=== PATIENT | male | born 1940 | race Caucasian/White ===

== ENCOUNTER 2017-12-26 12:15 | Day surgery (SDC) | payer BC ==
[~2017-12-26] VITALS: Ht 180.3 cm; Wt 80.4 kg
[2017-12-26] MEDS ORDERED: QUIN5 PO (12:44)
[2017-12-26] MEDS ORDERED: HYDCHL12.5 (12:44)
== END 2017-12-26 15:08 | disposition home or self-care (01) ==
LOC: ORSCSDS 12:15
PROVIDERS: Internal Medicine Gastroenterology
PROC: 0DBC8ZX Excision of Ileocecal Valve, Via Natural or Artificial Opening Endoscopic, Diagnostic (ICD-10-PCS; principal; 2017-12-26 13:30)
PROC: 0DBM8ZX Excision of Descending Colon, Via Natural or Artificial Opening Endoscopic, Diagnostic (ICD-10-PCS; principal; 2017-12-26 13:30)
DX: Z12.11 Encounter for screening for malignant neoplasm of colon (principal); K52.89 Other specified noninfective gastroenteritis and colitis; Z86.010 Personal history of colon polyps; K57.30 Diverticulosis of large intestine without perforation or abscess without bleeding; Z87.891 Personal history of nicotine dependence; Z79.899 Other long term (current) drug therapy
CPT/HCPCS: 88305; 93005; 93010; J1980

== ENCOUNTER 2018-07-01 09:27 | Inpatient (IN) | payer MEDICARE, BC ==
[~2018-07-01] VITALS: Ht 180.3 cm; Wt 85.6 kg
[~2018-07-01 09:27] MED LIST: HYDCHL12.5; QUIN5 PO
[2018-07-01 10:44] LABS: BASOPHILS ABSOLUTE AUTO 0.01 K/mm3 (0.00-0.23); BASOPHILS PERCENT AUTO 0 % (0-2); EOSINOPHILS PERCENT AUTO 0 % (0-6); Hematocrit 39.4 % (37.0-53.0); Hemoglobin 13.2 g/dL (13.5-17.5); IMMATURE GRAN ABSOLUTE AUTO 0.04 K/mm3 (0.00-0.10); IMMATURE GRAN PERCENT AUTO 0 % (0-1); LYMPHOCYTES ABSOLUTE AUTO 0.49 K/mm3 (0.84-5.20); LYMPHOCYTES PERCENT AUTO 5 % (21-46); MONOCYTES ABSOLUTE AUTO 0.35 K/mm3 (0.16-1.47); MONOCYTES PERCENT AUTO 3 % (4-13); Mean Corpuscular HGB 29.9 pg (26.0-34.0); Mean Corpuscular HGB Conc 33.5 g/dL (31.5-36.5); Mean Corpuscular Volume 89 fL (80-100); Mean Platelet Volume 11.3 fL (9.1-12.4); NEUTROPHILS ABSOLUTE AUTO 9.48 K/mm3 (1.96-9.15); NEUTROPHILS PERCENT AUTO 91 % (41-73); Platelet Count 138 K/mm3 (150-400); RDW Coefficient Variation 13.2 % (11.7-14.2); RDW Standard Deviation 43.5 fL (35.1-46.3); Red Blood Cell Count 4.42 M/mm3 (4.30-5.90); White Blood Cell Count 10.37 K/mm3 (4.00-11.30)
[2018-07-01 10:58] LABS: Albumin, Blood 3.1 g/dL (3.4-5.0); Albumin/Globulin Ratio 0.8 (0.8-1.8); Bilirubin, Total 0.6 mg/dL (0.1-1.0); Bun/Creatinine Ratio 24.3 (12.0-20.0); Calcium, Blood 8.2 mg/dL (8.5-10.1); Creatinine, Blood 1.36 mg/dL (0.60-1.20); Globulin, Blood 3.7 g/dL (2.2-4.0); Potassium, Blood 3.1 mmol/L (3.5-5.5); Total Protein, Blood 6.8 g/dL (6.4-8.2)
[2018-07-01] MEDS ORDERED: Dyazide 37.5-21 EACH PO (14:46)
[2018-07-01 15:21] LABS: Influenza A Negative (NEGATIVE); Influenza B Negative (NEGATIVE)
[2018-07-02 01:04] LABS: Source, Urine Voided
[2018-07-02 01:06] LABS: Appearance, Urine Clear (Clear); Bilirubin, Urine Neg (Neg); Blood, Urine 4+ (Neg); Color, Urine Amber (P-Yellow); Glucose Qualitative, Urine Neg (Neg); Ketones, Urine 1+ (Neg); Leukocyte Esterase, Urine 1+ (Neg); Nitrite, Urine Neg (Neg); Protein, Urine 3+ (Neg); Urobilinogen, Urine NORM (Normal)
[2018-07-02 01:11] LABS: Red Blood Cells, Urine 0-2 /hpf (0-2)
[2018-07-02 01:12] LABS: Bacteria Many /hpf; Squamous Epithelial Cells Few /hpf (Few)
[2018-07-02 05:17] LABS: BASOPHILS ABSOLUTE AUTO 0.01 K/mm3 (0.00-0.23); BASOPHILS PERCENT AUTO 0 % (0-2); EOSINOPHILS PERCENT AUTO 0 % (0-6); Hematocrit 40.7 % (37.0-53.0); Hemoglobin 13.5 g/dL (13.5-17.5); IMMATURE GRAN ABSOLUTE AUTO 0.06 K/mm3 (0.00-0.10); IMMATURE GRAN PERCENT AUTO 1 % (0-1); LYMPHOCYTES ABSOLUTE AUTO 0.43 K/mm3 (0.84-5.20); LYMPHOCYTES PERCENT AUTO 4 % (21-46); MONOCYTES ABSOLUTE AUTO 0.27 K/mm3 (0.16-1.47); MONOCYTES PERCENT AUTO 3 % (4-13); Mean Corpuscular HGB 30.2 pg (26.0-34.0); Mean Corpuscular HGB Conc 33.2 g/dL (31.5-36.5); Mean Corpuscular Volume 91 fL (80-100); Mean Platelet Volume 11.1 fL (9.1-12.4); NEUTROPHILS ABSOLUTE AUTO 9.88 K/mm3 (1.96-9.15); NEUTROPHILS PERCENT AUTO 93 % (41-73); Platelet Count 131 K/mm3 (150-400); RDW Coefficient Variation 13.7 % (11.7-14.2); RDW Standard Deviation 46.3 fL (35.1-46.3); Red Blood Cell Count 4.47 M/mm3 (4.30-5.90); White Blood Cell Count 10.65 K/mm3 (4.00-11.30)
[2018-07-02 05:29] LABS: Bun/Creatinine Ratio 22.4 (12.0-20.0); Creatinine, Blood 1.25 mg/dL (0.60-1.20); Potassium, Blood 3.9 mmol/L (3.5-5.5)
[2018-07-05] MEDS ORDERED: ACET325 PO (09:14)
[2018-07-05] MEDS ORDERED: TAMS.4ER PO (09:15)
[2018-07-05] MEDS ORDERED: BACL10 PO (09:15)
[2018-07-05] MEDS ORDERED: AZIT250 PO (09:15)
[2018-07-05] MEDS ORDERED: Ceftriaxone2 G1 IV (09:17)
== END 2018-07-05 16:12 | disposition home or self-care (01) | DRG 194 ==
LOC: ER 09:27 → MEDS 11:11 → ENPENDDIS 07-05 08:13 → MEDS 07-05 16:12
PROVIDERS: Emergency Medicine; Internal Medicine
DX: J18.9 Pneumonia, unspecified organism (principal); N17.9 Acute kidney failure, unspecified; R19.7 Diarrhea, unspecified; Z87.01 Personal history of pneumonia (recurrent); Z98.52 Vasectomy status; E87.6 Hypokalemia; I10 Essential (primary) hypertension; N39.490 Overflow incontinence; R06.6 Hiccough; N40.1 Benign prostatic hyperplasia with lower urinary tract symptoms; R09.02 Hypoxemia; E86.0 Dehydration
CPT/HCPCS: 36415; 71046; 80048; 80053; 81001; 83605; 85025; 87086; 87804; 93005; 93010; 94761; 94762; 96361; 96374; 96375; 99285-25; J0456; J0696; J1650; J3480; J7030; J7050

== ENCOUNTER 2018-07-06 00:07 | Day surgery (SDC) | payer MEDICARE, BC ==
[~2018-07-06 00:07] MED LIST changes: +ACET325 PO; +AZIT250 PO; +BACL10 PO; +Ceftriaxone2 G1 IV; +Dyazide 37.5-21 EACH PO; +TAMS.4ER PO
== END 2018-07-06 17:00 | disposition home or self-care (01) ==
LOC: ATC 00:07
DX: J18.9 Pneumonia, unspecified organism (principal); J18.1 Lobar pneumonia, unspecified organism
CPT/HCPCS: 96365; J0696

== ENCOUNTER 2018-07-07 00:29 | Day surgery (SDC) | payer MEDICARE, BC | END 2018-07-07 16:50 | disposition home or self-care (01) | LOC: ATC 00:29 | DX: J18.1 Lobar pneumonia, unspecified organism (principal); Z87.891 Personal history of nicotine dependence | CPT/HCPCS: 96365; J0696 ==

== ENCOUNTER 2024-04-09 12:50 | Emergency (ER) | payer BC ==
[~2024-04-09] VITALS: Ht 180.3 cm; Wt 81.2 kg
[2024-04-09 12:59] VITALS: BP 130/84
[2024-04-09] MEDS ORDERED: Diphth,Pertuss(Acell),Tet Vac 0.5 ML VIAL IM ONE (14:25)
== END 2024-04-09 14:30 | disposition home or self-care (01) ==
LOC: ER 12:50
DX: I83.892 Varicose veins of left lower extremity with other complications (principal); I10 Essential (primary) hypertension; Z23 Encounter for immunization; Z87.891 Personal history of nicotine dependence; Z79.899 Other long term (current) drug therapy; Z88.5 Allergy status to narcotic agent
CPT/HCPCS: 90471; 90715; 99282-25